=== PATIENT | male | born 1960 | race American Indian/Alaskan Native ===

== ENCOUNTER 2017-06-21 21:11 | Emergency (ER) | payer OTHER ==
[2017-06-21 22:39] LABS: Anion Gap 22 mmol/L; Blood Urea Nitrogen 24 mg/dL (9-20); Calcium 8.6 mg/dL (8.4-10.2); Carbon Dioxide 18 mmol/L (22-30); Chloride 100.3 mmol/L (98-107); Glucose 92 mg/dL (75-100); Potassium 5.2 mmol/L (3.6-5.0); Sodium 135 mmol/L (137-145)
[2017-06-21 22:44] LABS: Eosinophils % (Auto) 1.2 % (0.0-4.3)
[2017-06-21 22:55] LABS: Hematocrit 39.7 % (35.5-45.6); Hemoglobin 12.1 gm/dl (11.8-15.2); Mean Corpuscular HGB Conc 31 % (32-34); Mean Corpuscular Hemoglobin 26 pg (28-32); Mean Corpuscular Volume 85 fl (84-94); Platelet Count 383 K/mm3 (140-440); Red Blood Count 4.65 M/mm3 (3.65-5.03); Red Cell Distribution Width 16.8 % (13.2-15.2); White Blood Count 8.1 K/mm3 (4.5-11.0)
[2017-06-21 22:56] LABS: Basophils % (Auto) 1.1 % (0.0-1.8)
[2017-06-21 23:18] LABS: Bilirubin,Urine NEG (Negative); Blood,Urine SM (Negative); Ketones,Urine NEG (Negative); Leukocyte Esterase,Urine SM (Negative); Mucus,Urine FEW /HPF; Nitrite,Urine NEG (Negative); Urobilinogen,Urine < 2.0 mg/dL (<2.0)
[2017-06-22 07:49] LABS: INR 2.16 (0.87-1.13); Partial Thromboplastin Time 32.8 Sec. (24.2-36.6)
--- NOTE | 2017-06-22 08:20 | XRay Report ---
CHEST TWO VIEWS: 06/21/17 21:11:00 CLINICAL: Shortness of breath. COMPARISON: None FINDINGS: The heart is greatly enlarged. Redistribution of pulmonary blood flow to the upper lobes. The lungs are normally expanded and clear. Mild opacification of the right lateral and posterior costophrenic angles.The bones and soft tissues are normal. IMPRESSION: Cardiomegaly, pulmonary venous hypertension and small right pleural effusion.No pulmonary edema.
[2017-06-22] MEDS ORDERED: LASIX IV ONE (08:56)
--- NOTE | 2017-06-22 11:56 | Emergency Department Report ---
HPI - General Chief Complaint: Dyspnea/Respdistress Time Seen by Provider: 06/22/17 08:57 - HPI HPI: Patient brought to ED with shortness of breath, leg swelling, but no fever or chills. Patient denies chest pain, nausea or diaphoresis. Patient with history of CHF and recent admission at outside hospital. Was given Lasix 40 mg daily states that he's been taking it. Patient has not been adhering to any kind of diet. ED Past Medical Hx - Past Medical History Previous Medical History?: Yes Hx Hypertension: Yes - Surgical History Past Surgical History?: Yes Additional Surgical History: shoulder SX - Social History Smoking Status: Former Smoker Substance Use Type: None - Medications Home Medications: Home Medications Medication Instructions Recorded Confirmed Last Taken Type Furosemide [Lasix TAB] 40 mg PO BID #60 tablet 06/22/17 Unknown Rx ED Review of Systems ROS: Stated complaint: CHANTE Other details as noted in HPI Comment: All other systems reviewed and negative Respiratory: shortness of breath Musculoskeletal: other (leg swelling) Physical Exam - Physical Exam Vital Signs: Vital Signs 06/21/17 06/22/17 06/22/17 21:36 07:21 07:23 Temperature 97.7 F Pulse Rate 90 85 91 H Respiratory 20 25 H 20 Rate Blood Pressure 130/94 130/86 130/86 O2 Sat by Pulse 100 96 98 Oximetry 06/22/17 06/22/17 06/22/17 07:25 07:27 07:29 Temperature Pulse Rate 93 H 92 H 92 H Respiratory 24 20 26 H Rate Blood Pressure 130/86 130/86 130/86 O2 Sat by Pulse 100 99 100 Oximetry 06/22/17 06/22/17 06/22/17 07:30 07:31 07:33 Temperature Pulse Rate 92 H 91 H 90 Respiratory 24 21 22 Rate Blood Pressure 134/88 134/88 134/88 O2 Sat by Pulse 95 100 Oximetry 06/22/17 06/22/17 06/22/17 07:35 07:37 07:39 Temperature Pulse Rate 88 89 90 Respiratory 13 19 21 Rate Blood Pressure 134/88 134/88 134/88 O2 Sat by Pulse 99 100 100 Oximetry 06/22/17 06/22/17 06/22/17 07:41 07:43 07:45 Temperature Pulse Rate 90 89 91 H Respiratory 25 H 16 21 Rate Blood Pressure 134/88 134/88 134/88 O2 Sat by Pulse 94 98 97 Oximetry 06/22/17 06/22/17 06/22/17 07:46 07:47 07:49 Temperature Pulse Rate 93 H 91 H 91 H Respiratory 22 18 22 Rate Blood Pressure 138/82 138/82 138/82 O2 Sat by Pulse 100 100 99 Oximetry 06/22/17 06/22/17 06/22/17 07:51 07:53 07:55 Temperature Pulse Rate 90 86 85 Respiratory 17 22 23 Rate Blood Pressure 138/82 138/82 138/82 O2 Sat by Pulse 97 97 94 Oximetry 06/22/17 06/22/17 06/22/17 07:57 07:59 08:00 Temperature Pulse Rate 87 90 90 Respiratory 23 23 29 H Rate Blood Pressure 138/82 138/82 136/87 O2 Sat by Pulse 98 99 96 Oximetry 06/22/17 06/22/17 06/22/17 08:01 08:03 08:05 Temperature Pulse Rate 93 H 94 H 94 H Respiratory 26 H 27 H 25 H Rate Blood Pressure 136/87 136/87 136/87 O2 Sat by Pulse 98 96 97 Oximetry 06/22/17 06/22/17 06/22/17 08:07 08:09 08:10 Temperature Pulse Rate 94 H 94 H 92 H Respiratory 18 26 H 24 Rate Blood Pressure 136/87 136/87 136/85 O2 Sat by Pulse 98 96 96 Oximetry 06/22/17 06/22/17 06/22/17 08:11 08:13 08:15 Temperature Pulse Rate 92 H 89 90 Respiratory 22 21 20 Rate Blood Pressure 136/87 136/87 132/80 O2 Sat by Pulse 95 94 95 Oximetry 06/22/17 06/22/17 06/22/17 08:17 08:19 08:21 Temperature Pulse Rate 89 92 H 91 H Respiratory 15 22 22 Rate Blood Pressure 132/80 132/80 132/80 O2 Sat by Pulse 99 99 93 Oximetry 06/22/17 06/22/17 06/22/17 08:23 08:25 08:27 Temperature Pulse Rate 90 89 89 Respiratory 21 20 22 Rate Blood Pressure 132/80 136/87 136/87 O2 Sat by Pulse 94 98 98 Oximetry 06/22/17 06/22/17 06/22/17 08:29 08:30 08:31 Temperature Pulse Rate 90 90 89 Respiratory 21 21 22 Rate Blood Pressure 136/87 131/76 131/76 O2 Sat by Pulse 97 95 97 Oximetry 06/22/17 06/22/17 06/22/17 08:33 08:35 08:37 Temperature Pulse Rate 89 89 90 Respiratory 21 21 23 Rate Blood Pressure 131/76 131/76 131/76 O2 Sat by Pulse 97 97 97 Oximetry 06/22/17 06/22/17 06/22/17 08:39 08:41 08:43 Temperature Pulse Rate 89 90 89 Respiratory 21 19 21 Rate Blood Pressure 131/76 131/76 131/76 O2 Sat by Pulse 97 97 97 Oximetry 06/22/17 06/22/17 06/22/17 08:45 08:47 08:49 Temperature Pulse Rate 88 88 89 Respiratory 21 19 18 Rate Blood Pressure 128/76 128/76 128/76 O2 Sat by Pulse 94 98 97 Oximetry 06/22/17 06/22/17 06/22/17 08:51 08:53 08:55 Temperature Pulse Rate 90 89 89 Respiratory 18 19 19 Rate Blood Pressure 128/76 128/76 132/80 O2 Sat by Pulse 98 97 99 Oximetry 06/22/17 06/22/17 06/22/17 08:57 08:59 09:00 Temperature Pulse Rate 88 88 88 Respiratory 16 18 20 Rate Blood Pressure 132/80 132/80 132/81 O2 Sat by Pulse 98 99 98 Oximetry 06/22/17 06/22/17 06/22/17 09:03 09:05 09:07 Temperature Pulse Rate 87 88 88 Respiratory 19 21 22 Rate Blood Pressure 132/81 132/81 132/81 O2 Sat by Pulse 99 98 97 Oximetry 06/22/17 06/22/17 06/22/17 09:09 09:11 09:13 Temperature Pulse Rate 87 87 88 Respiratory 21 20 21 Rate Blood Pressure 132/81 132/81 132/81 O2 Sat by Pulse 98 98 97 Oximetry 06/22/17 06/22/17 06/22/17 09:15 09:17 09:19 Temperature Pulse Rate 87 88 88 Respiratory 21 23 16 Rate Blood Pressure 133/84 133/84 133/84 O2 Sat by Pulse 94 96 97 Oximetry 06/22/17 06/22/17 06/22/17 09:21 09:23 09:25 Temperature Pulse Rate 84 83 83 Respiratory 19 20 21 Rate Blood Pressure 133/84 133/84 133/84 O2 Sat by Pulse 99 99 99 Oximetry 06/22/17 06/22/17 06/22/17 09:27 09:29 09:30 Temperature Pulse Rate 83 85 84 Respiratory 21 22 24 Rate Blood Pressure 132/81 132/81 132/78 O2 Sat by Pulse 95 91 89 Oximetry 06/22/17 06/22/17 06/22/17 09:33 09:35 09:37 Temperature Pulse Rate 91 H 91 H 90 Respiratory 26 H 25 H 17 Rate Blood Pressure 132/78 132/78 132/78 O2 Sat by Pulse 93 94 99 Oximetry 06/22/17 06/22/17 06/22/17 09:39 09:41 09:43 Temperature Pulse Rate 88 86 90 Respiratory 17 20 23 Rate Blood Pressure 132/78 132/78 132/78 O2 Sat by Pulse 100 96 100 Oximetry 06/22/17 06/22/17 09:45 09:47 Temperature Pulse Rate 90 92 H Respiratory 21 25 H Rate Blood Pressure 137/82 137/82 O2 Sat by Pulse 95 96 Oximetry Physical Exam: - Physical Exam Physical Exam: - General Limitations: No Limitations General appearance: alert, in no apparent distress, obese - Head Head exam: Present: atraumatic, normocephalic - Eye Eye exam: Present: normal appearance - ENT ENT exam: Present: mucous membranes moist - Neck Neck exam: Present: normal inspection - Respiratory Respiratory exam: Present: normal lung sounds bilaterally. Absent: respiratory distress - Cardiovascular Cardiovascular Exam: Present: normal rhythm, tachycardia. Absent: systolic murmur, diastolic murmur, rubs, gallop - GI/Abdominal GI/Abdominal exam: Present: soft, normal bowel sounds - Extremities Exam Extremities exam: Present: normal inspection - Back Exam Back exam: Present: normal inspection - Neurological Exam Neurological exam: Present: alert, oriented X3 - Psychiatric Psychiatric exam: normal affect and mood - Skin Skin exam: Present: warm, dry, intact, normal color. Absent: rash ED Course Vital Signs 06/21/17 06/22/17 06/22/17 21:36 07:21 07:23 Temperature 97.7 F Pulse Rate 90 85 91 H Respiratory 20 25 H 20 Rate Blood Pressure 130/94 130/86 130/86 O2 Sat by Pulse 100 96 98 Oximetry 06/22/17 06/22/17 06/22/17 07:25 07:27 07:29 Temperature Pulse Rate 93 H 92 H 92 H Respiratory 24 20 26 H Rate Blood Pressure 130/86 130/86 130/86 O2 Sat by Pulse 100 99 100 Oximetry 06/22/17 06/22/17 06/22/17 07:30 07:31 07:33 Temperature Pulse Rate 92 H 91 H 90 Respiratory 24 21 22 Rate Blood Pressure 134/88 134/88 134/88 O2 Sat by Pulse 95 100 Oximetry 06/22/17 06/22/17 06/22/17 07:35 07:37 07:39 Temperature Pulse Rate 88 89 90 Respiratory 13 19 21 Rate Blood Pressure 134/88 134/88 134/88 O2 Sat by Pulse 99 100 100 Oximetry 06/22/17 06/22/17 06/22/17 07:41 07:43 07:45 Temperature Pulse Rate 90 89 91 H Respiratory 25 H 16 21 Rate Blood Pressure 134/88 134/88 134/88 O2 Sat by Pulse 94 98 97 Oximetry 06/22/17 06/22/17 06/22/17 07:46 07:47 07:49 Temperature Pulse Rate 93 H 91 H 91 H Respiratory 22 18 22 Rate Blood Pressure 138/82 138/82 138/82 O2 Sat by Pulse 100 100 99 Oximetry 06/22/17 06/22/17 06/22/17 07:51 07:53 07:55 Temperature Pulse Rate 90 86 85 Respiratory 17 22 23 Rate Blood Pressure 138/82 138/82 138/82 O2 Sat by Pulse 97 97 94 Oximetry 06/22/17 06/22/17 06/22/17 07:57 07:59 08:00 Temperature Pulse Rate 87 90 90 Respiratory 23 23 29 H Rate Blood Pressure 138/82 138/82 136/87 O2 Sat by Pulse 98 99 96 Oximetry 06/22/17 06/22/17 06/22/17 08:01 08:03 08:05 Temperature Pulse Rate 93 H 94 H 94 H Respiratory 26 H 27 H 25 H Rate Blood Pressure 136/87 136/87 136/87 O2 Sat by Pulse 98 96 97 Oximetry 06/22/17 06/22/17 06/22/17 08:07 08:09 08:10 Temperature Pulse Rate 94 H 94 H 92 H Respiratory 18 26 H 24 Rate Blood Pressure 136/87 136/87 136/85 O2 Sat by Pulse 98 96 96 Oximetry 06/22/17 06/22/17 06/22/17 08:11 08:13 08:15 Temperature Pulse Rate 92 H 89 90 Respiratory 22 21 20 Rate Blood Pressure 136/87 136/87 132/80 O2 Sat by Pulse 95 94 95 Oximetry 06/22/17 06/22/17 06/22/17 08:17 08:19 08:21 Temperature Pulse Rate 89 92 H 91 H Respiratory 15 22 22 Rate Blood Pressure 132/80 132/80 132/80 O2 Sat by Pulse 99 99 93 Oximetry 06/22/17 06/22/17 06/22/17 08:23 08:25 08:27 Temperature Pulse Rate 90 89 89 Respiratory 21 20 22 Rate Blood Pressure 132/80 136/87 136/87 O2 Sat by Pulse 94 98 98 Oximetry 06/22/17 06/22/17 06/22/17 08:29 08:30 08:31 Temperature Pulse Rate 90 90 89 Respiratory 21 21 22 Rate Blood Pressure 136/87 131/76 131/76 O2 Sat by Pulse 97 95 97 Oximetry 06/22/17 06/22/17 06/22/17 08:33 08:35 08:37 Temperature Pulse Rate 89 89 90 Respiratory 21 21 23 Rate Blood Pressure 131/76 131/76 131/76 O2 Sat by Pulse 97 97 97 Oximetry 06/22/17 06/22/17 06/22/17 08:39 08:41 08:43 Temperature Pulse Rate 89 90 89 Respiratory 21 19 21 Rate Blood Pressure 131/76 131/76 131/76 O2 Sat by Pulse 97 97 97 Oximetry 06/22/17 06/22/17 06/22/17 08:45 08:47 08:49 Temperature Pulse Rate 88 88 89 Respiratory 21 19 18 Rate Blood Pressure 128/76 128/76 128/76 O2 Sat by Pulse 94 98 97 Oximetry 06/22/17 06/22/17 06/22/17 08:51 08:53 08:55 Temperature Pulse Rate 90 89 89 Respiratory 18 19 19 Rate Blood Pressure 128/76 128/76 132/80 O2 Sat by Pulse 98 97 99 Oximetry 06/22/17 06/22/17 06/22/17 08:57 08:59 09:00 Temperature Pulse Rate 88 88 88 Respiratory 16 18 20 Rate Blood Pressure 132/80 132/80 132/81 O2 Sat by Pulse 98 99 98 Oximetry 06/22/17 06/22/17 06/22/17 09:03 09:05 09:07 Temperature Pulse Rate 87 88 88 Respiratory 19 21 22 Rate Blood Pressure 132/81 132/81 132/81 O2 Sat by Pulse 99 98 97 Oximetry 06/22/17 06/22/17 06/22/17 09:09 09:11 09:13 Temperature Pulse Rate 87 87 88 Respiratory 21 20 21 Rate Blood Pressure 132/81 132/81 132/81 O2 Sat by Pulse 98 98 97 Oximetry 06/22/17 06/22/17 06/22/17 09:15 09:17 09:19 Temperature Pulse Rate 87 88 88 Respiratory 21 23 16 Rate Blood Pressure 133/84 133/84 133/84 O2 Sat by Pulse 94 96 97 Oximetry 06/22/17 06/22/17 06/22/17 09:21 09:23 09:25 Temperature Pulse Rate 84 83 83 Respiratory 19 20 21 Rate Blood Pressure 133/84 133/84 133/84 O2 Sat by Pulse 99 99 99 Oximetry 06/22/17 06/22/17 06/22/17 09:27 09:29 09:30 Temperature Pulse Rate 83 85 84 Respiratory 21 22 24 Rate Blood Pressure 132/81 132/81 132/78 O2 Sat by Pulse 95 91 89 Oximetry 06/22/17 06/22/17 06/22/17 09:33 09:35 09:37 Temperature Pulse Rate 91 H 91 H 90 Respiratory 26 H 25 H 17 Rate Blood Pressure 132/78 132/78 132/78 O2 Sat by Pulse 93 94 99 Oximetry 06/22/17 06/22/17 06/22/17 09:39 09:41 09:43 Temperature Pulse Rate 88 86 90 Respiratory 17 20 23 Rate Blood Pressure 132/78 132/78 132/78 O2 Sat by Pulse 100 96 100 Oximetry 06/22/17 06/22/17 09:45 09:47 Temperature Pulse Rate 90 92 H Respiratory 21 25 H Rate Blood Pressure 137/82 137/82 O2 Sat by Pulse 95 96 Oximetry ED Medical Decision Making - Lab Data Result diagrams: 06/21/17 22:04 06/21/17 22:04 Critical care attestation.: If time is entered above; I have spent that time in minutes in the direct care of this critically ill patient, excluding procedure time. ED Disposition Clinical Impression: CHF (congestive heart failure) Qualifiers: Congestive heart failure type: systolic Congestive heart failure chronicity: chronic Qualified Code(s): I50.22 - Chronic systolic (congestive) heart failure Disposition: TO HOME OR SELFCARE Is pt being admited?: No Does the pt Need Aspirin: No Condition: Stable Prescriptions: Furosemide [Lasix TAB] 40 mg PO BID #60 tablet Referrals: PRIMARY CARE, [Primary Care Provider] - 3-5 Days
[2017-06-22 12:42] VITALS: BP 131/85
== END 2017-06-22 12:42 | disposition home or self-care (01) ==
LOC: ED 21:11 → EEVIPCON 21:11 → ED 06-22 12:42
DX: I11.0 Hypertensive heart disease with heart failure (principal); I50.9 Heart failure, unspecified; Z87.891 Personal history of nicotine dependence
CPT/HCPCS: 36415; 71020; 80048; 81001; 83880; 84484; 85025; 85610; 85730; 93005; 93010; 96374; 99284; J1940